=== PATIENT | female | born 1990 | race American Indian/Alaskan Native ===

== ENCOUNTER 2017-03-10 07:23 | Day surgery (SDC) | payer MEDICAID ==
[~2017-03-10 07:23] MED LIST: Lactated Ringers 1,000 ML IV SCH; Sodium Chloride 0.9% 10 ML Syringe FLUSH PRN
[2017-03-10] MEDS ORDERED: Propofol 1,000 MG/100 ML SDV IV ONE (07:24)
[2017-03-10] MEDS ORDERED: Lidocaine 1% 30 ML SDV INJECT ONE ×4 (07:24→08:53)
[2017-03-10] MEDS ORDERED: Ketorolac 30 MG/ML SDV IVPUSH ONE (07:24)
[2017-03-10] MEDS ORDERED: Dexamethasone 4 MG/ML SDV IV ONE (07:24)
[2017-03-10] MEDS ORDERED: Ondansetron 4 MG/2 ML SDV IV ONE (07:24)
[2017-03-10] MEDS ORDERED: fentaNYL 100 MCG/2 ML SDV IV ONE (07:24)
[2017-03-10] MEDS ORDERED: Midazolam 1 MG/ML 2 ML SDV IV ONE (07:24)
[2017-03-10] MEDS ORDERED: Bupivacaine 0.5% 10 ML SDV INJECT ONE ×4 (07:24→08:53)
[2017-03-10] MEDS ORDERED: Lidocaine 1% 30 ML SDV ONE (07:29)
[2017-03-10] MEDS ORDERED: Bupivacaine 0.5% 10 ML SDV ONE (07:29)
[2017-03-10] MEDS ORDERED: Ondansetron 4 MG/2 ML SDV ONE (07:57)
[2017-03-10] MEDS ORDERED: Ketorolac 30 MG/ML SDV ONE (07:57)
[2017-03-10] MEDS ORDERED: Dexamethasone 4 MG/ML SDV ONE (07:57)
[2017-03-10] MEDS ORDERED: fentaNYL 100 MCG/2 ML SDV ONE (07:57)
[2017-03-10] MEDS ORDERED: Midazolam 1 MG/ML 2 ML SDV ONE ×2 (07:57→08:01)
[2017-03-10] MEDS ORDERED: Acetaminophen/oxyCODONE 325-5 MG Tab PO PRN (09:12)
--- NOTE | 2017-03-10 09:17 | PCM.OPNOTE ---
- General Post-Op/Procedure Note Date of Surgery/Procedure: 03/10/17 Operative Procedure(s): left foot hardware removal Pre Op Diagnosis: left foot painful hardware Post-Op Diagnosis: fatoumata Anesthesia Technique: Local, MAC Primary Surgeon: India Sharma Anesthesia Provider: Cuong Diamond EBMelecio in mLs: 5 Complications: none Condition: Good Free Text/Narrative:: pt tolerated procedure well and was transported to recovery with vascular status intact to left foot. TT 11 mins. Well padded dressing with jhoan wrap applied.
[2017-03-10 11:15] VITALS: BP 110/43
--- NOTE | 2017-03-10 15:03 | OR ---
DATE: 03/10/2017 PREOPERATIVE DIAGNOSIS: Left foot painful hardware. POSTOPERATIVE DIAGNOSIS: Left foot painful hardware. PROCEDURE PERFORMED: Left foot hardware removal. ANESTHESIA: Local MAC with preoperative local block of 10 mL of 1:1 mixture of 1% lidocaine plain and 0.5% Marcaine plain. TOURNIQUET TIME: 11 minutes of pneumatic ankle tourniquet. ESTIMATED BLOOD LOSS: Minimal. SPECIMEN: None. COMPLICATIONS: None. INDICATIONS: Brandee is a 26-year-old female who presents with left great toe pain. She had a surgery performed on that great toe back in 2005. She has not really had any issues since the surgery up until a few months ago. She states now she is having pain to the end of that toe, feels like there is something moving around underneath the skin. It is causing numbness and pain to the area. It is painful all the time, even when she is resting. Rated 7/10 at worst. She has tried multiple different shoes and padding with no relief. X-rays of the left foot reveal a large screw intact to the distal hallux with lucency around the screw and prominent screw head. IPJ appears well fused. No signs of fracture. The patient voiced good understanding of proposed procedure and possible complications, and elects to have surgery at this time. DESCRIPTION OF PROCEDURE: The patient was taken to the operating room, lying in supine position. After adequate anesthesia induction as described above, the left foot was prepped and draped in usual sterile fashion. A pneumatic ankle tourniquet was inflated to 225 mmHg. Attention was then directed to the left great toe where a small stab incision was made at the very distal aspect. Sharp and blunt dissection were carried down to the level of the screw head. The soft tissue was gently removed from the screw head and the screw was removed from the left great toe. I visualized the area and there did not appear to be any bony spurring to the area. I then irrigated the area with copious amounts of sterile saline. Closure was completed with 3-0 nylon. The area was then dressed with Xeroform to the incision site, fluffs, Webril, and a well-padded dressing with an Alejandro wrap. The patient tolerated the anesthesia well and procedure and was transported to the recovery room with vital signs stable and vascular status intact as noted by immediate hyperemia to all digits upon deflation of ankle tourniquet. The patient was then discharged home when she met hospital discharge requirements. [facility] /[id number]
== END 2017-03-10 10:10 | disposition home or self-care (01) ==
LOC: DL.SDS 07:23
PROVIDERS: ATTEND Podiatrist
DX: T84.84XA Pain due to internal orthopedic prosthetic devices, implants and grafts, initial encounter (principal); Z47.2 Encounter for removal of internal fixation device; Z88.8 Allergy status to other drugs, medicaments and biological substances; Z98.890 Other specified postprocedural states
CPT/HCPCS: 20680; 81025; J1100; J1885; J2250; J2405; J2704; J3010; J7120; 01480

== ENCOUNTER 2017-04-09 13:19 | Emergency (ER) | payer MEDICAID ==
[2017-04-09 14:25] LABS: CHLORIDE,CL 111 mmol/L (101-111); SODIUM,NA 141 mmol/L (135-145)
[2017-04-09] MEDS ORDERED: Ibuprofen 800 MG Tab PO ONE (14:37)
[2017-04-09 14:47] VITALS: BP 106/64
--- NOTE | 2017-04-09 14:50 | EDM.PDOC ---
Scribed by Janice Tiwari 04/09/17 2534 for Darci Zamarripa MD ED HPI GENERAL MEDICAL PROBLEM - General Chief Complaint: Lower Extremity Injury/Pain Stated Complaint: LEFT LEG Time Seen by Provider: 04/09/17 13:45 Source of Information: Reports: Patient, RN, RN Notes Reviewed History Limitations: Reports: No Limitations - History of Present Illness INITIAL COMMENTS - FREE TEXT/NARRATIVE: Patient complains of left lower leg (calf) pain. Denies injury. Patient states she was completely normal yesterday and woke this morning to severe left calf pain. Onset: Today Location: Reports: Lower Extremity, Left Quality: Reports: Ache Severity: Severe Improves with: Reports: None Worsens with: Reports: None Associated Symptoms: Reports: No Other Symptoms Left Lower Posterior Leg Pain Score (Numeric/FACES): 8 - Related Data Allergies Allergy/AdvReac Type Severity Reaction Status Date / Time tramadol Allergy Cannot Verified 03/10/17 07:42 Remember Home Meds: Home Meds . 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: Musculoskeletal History: Reports: Back Pain, Chronic Psychiatric History: Reports: Depression Other Hematologic History: ''TOOK IRON TABLET AFTER " - Infectious Disease History Infectious Disease History: Reports: Chicken Pox - Past Surgical History Female Surgical History: Reports: Section Musculoskeletal Surgical History: Reports: Other (See Below) Other Musculoskeletal Surgeries/Procedures:: hip pinnings and hammer toe Social & Family History - Family History Family Medical History: Noncontributory - Tobacco Use Smoking Status *Q: Never Smoker Years of Tobacco use: 4 Used Tobacco, but Quit: Yes Month Tobacco Last Used: 08/2014 Second Hand Smoke Exposure: Yes - Caffeine Use Caffeine Use: Reports: Coffee, Soda - Alcohol Use Days Per Week of Alcohol Use: 0 - Recreational Drug Use Recreational Drug Use: No - Living Situation & Occupation Living situation: Reports: with Significant Other Occupation: Unemployed Review of Systems - Review of Systems Review Of Systems: ROS reveals no pertinent complaints other than HPI. ED EXAM, GENERAL - Physical Exam Exam: See Below Exam Limited By: No Limitations General Appearance: Obese Respiratory/Chest: No Respiratory Distress, Lungs Clear, Normal Breath Sounds, No Accessory Muscle Use, Chest Non-Tender Cardiovascular: Normal Peripheral Pulses, Regular Rate, Rhythm, No Edema, No Gallop, No JVD, No Murmur, No Rub Back Exam: Normal Inspection, Full Range of Motion, NT Extremities: Other (left lower leg is tender at calf. No visibleswelling, bruising or erythema.Normal temperatureto touch.Skin is intact.) Neurological: Alert, Oriented, CN II-XII Intact, Normal Cognition, Normal Gait, Normal Reflexes, No Motor/Sensory Deficits Psychiatric: Normal Affect, Normal Mood Skin Exam: Warm, Dry, Intact, Normal Color, No Rash Lymphatic: No Adenopathy Course - Vital Signs Last Recorded V/S: Last Vital Signs Temp 36.7 C 04/09/17 14:47 Pulse 74 04/09/17 14:47 Resp 18 04/09/17 14:47 BP 106/64 04/09/17 14:47 Pulse Ox 100 04/09/17 14:47 - Orders/Labs/Meds Orders: Active Orders 24 hr Category Date Time Status DME for Discharge [COMM] Routine Oth 04/09/17 14:38 Ordered Labs: Laboratory Tests 04/09/17 04/09/17 04/09/17 Range/Units 13:58 13:58 13:58 WBC 6.3 (5.0-10.0) 10^3/uL RBC 3.72 L (4.2-5.4) 10^6/uL Hgb 12.3 D (12.0-16.0) g/dL Hct 37.1 (37.0-47.0) % MCV 99.7 (80-100) fL MCH 33.1 (27.0-34.0) pg MCHC 33.2 (33.0-35.0) g/dL Plt Count 126 L (150-450) 10^3/uL Neut % (Auto) 78.6 H (42.2-75.2) % Lymph % (Auto) 14.0 L (20.5-50.1) % Mccormick % (Auto) 5.6 (2-8) % Eos % (Auto) 1.6 (1.0-3.0) % Baso % (Auto) 0.2 (0.0-1.0) % D-Dimer, Quantitative < 100 (0-400) ng/mL Sodium 141 (135-145) mmol/L Potassium 3.9 (3.6-5.0) mmol/L Chloride 111 (101-111) mmol/L Carbon Dioxide 23.0 (21.0-31.0) mmol/L Anion Gap 10.9 BUN 13 (7-18) mg/dL Creatinine 0.6 (0.6-1.3) mg/dL Est Cr Clr Drug Dosing 138.17 mL/min Estimated GFR (MDRD) > 60 Glucose 98 (74-105) mg/dL Calcium 8.6 (8.4-10.2) mg/dl Magnesium 1.9 (1.8-2.5) mg/dL Meds: Medications Discontinued Medications Generic Name Dose Route Start Last Admin Trade Name Chris PRN Reason Stop Dose Admin Ibuprofen 800 mg 04/09/17 14:37 Motrin PO 04/09/17 14:38 ONETIME ONE Departure - Departure Time of Disposition: 14:37 Disposition: Home, Self-Care 01 Condition: Good Clinical Impression: Leg pain, posterior Qualifiers: Laterality: left Qualified Code(s): M79.605 - Pain in left leg - Discharge Information Instructions: Pain Without a Known Cause Forms: ED Department Discharge Additional Instructions: Ibuprofen 800mg. Use crutches as needed. Moist heat pad to the area of the pain. Follow up in clinic this week if not improved. - My Orders Last 24 Hours: My Active Orders 04/09/17 14:38 DME for Discharge [COMM] Routine - Assessment/Plan Last 24 Hours: My Active Orders 04/09/17 14:38 DME for Discharge [COMM] Routine I have read and agree with the documentation that has been completed regarding this visit. By signing this record, I attest that the documentation was completed in my physical presence and is an accurate record of the encounter.
== END 2017-04-09 15:09 | disposition home or self-care (01) ==
LOC: DL.ED 13:19
DX: M79.605 Pain in left leg (principal); Z88.5 Allergy status to narcotic agent
CPT/HCPCS: 36415; 80048; 83735; 85025; 85379; 99284

== ENCOUNTER 2021-02-15 20:02 | Emergency (ER) | payer MEDICAID ==
[2021-02-15] MEDS ORDERED: Butorphanol 2 MG/ML SDV IM ONE (20:12)
[2021-02-15] MEDS ORDERED: Amoxicillin/Clavulanate K 875-125 MG Tab PO ONE (20:12)
--- NOTE | 2021-02-15 20:15 | EDM.PDOC ---
ED HPI GENERAL MEDICAL PROBLEM - General Chief Complaint: ENT Problem Stated Complaint: TOOTH ABCESS Time Seen by Provider: 02/15/21 20:09 Source of Information: Reports: Patient - History of Present Illness INITIAL COMMENTS - FREE TEXT/NARRATIVE: Pt is here for dental pain. It started a few days ago and has been getting worse. She notes it is on the left side, top and bottom. She has not seen anyone yet for this. She has been taking tylenol and ibuprofen for the pain without relief. She rates her pain a 10/10. Nothing makes it better. Eating and talking makes it worse. No fevers or chills. Onset: Gradual Duration: Day(s): Quality: Reports: Ache, Throbbing Treatments DIRECTOR INDEPENDENT: Reports: Acetaminophen, NSAIDS - Related Data Allergies Allergy/AdvReac Type Severity Reaction Status Date / Time tramadol Allergy Cannot Verified 02/15/21 20:12 Remember Home Meds: Home Meds . 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 No BC Musculoskeletal Surgical History: Reports: Other (See Below) Other Musculoskeletal Surgeries/Procedures:: hip pinnings and hammer toe Social & Family History - Family History Family Medical History: No Pertinent Family History - Caffeine Use Caffeine Use: Reports: Coffee, Soda - Living Situation & Occupation Living situation: Reports: with Significant Other Occupation: Unemployed ED ROS ENT - Review of Systems Review Of Systems: Comprehensive ROS is negative, except as noted in HPI. ED EXAM, ENT - Physical Exam Exam: See Below Exam Limited By: No Limitations General Appearance: Alert, WD/WN, Mild Distress (due to pain) Eye Exam: Bilateral Eye: Normal Inspection Ears: Normal External Exam Nose: Normal Inspection, No Blood Mouth/Throat: Normal Oropharynx, Dental Pain (left upper with broken tooth and surrounding erythema), Dental Tenderness, Gum Swelling. No: Dental Abcess, Throat Swelling, Tongue Swelling, Uvular Deviation Head: Atraumatic, Normocephalic Neck: Normal Inspection, Supple, Non-Tender Respiratory/Chest: No Respiratory Distress, Lungs Clear, Normal Breath Sounds, No Accessory Muscle Use Cardiovascular: Normal Peripheral Pulses, Regular Rate, Rhythm, No Murmur GI/Abdominal: Soft, No Distention (Female) Exam: Deferred Rectal (Female) Exam: Deferred Back: Normal Inspection, Full Range of Motion Extremities: Normal Inspection, Normal Range of Motion, No Pedal Edema Neurological: Alert, Oriented, Normal Cognition, No Motor/Sensory Deficits Psychiatric: Normal Mood, Tearful Skin: Warm, Dry, Intact, Normal Color Lymphatic: No Adenopathy Departure - Departure Time of Disposition: 20:17 Disposition: Home, Self-Care 01 Condition: Good Clinical Impression: Dental caries, Dental infection - Discharge Information *PRESCRIPTION DRUG MONITORING PROGRAM REVIEWED*: No *COPY OF PRESCRIPTION DRUG MONITORING REPORT IN PATIENT CARLENE: No Instructions: Dental Caries, Adult, [id number], Dental Abscess, [id number] Forms: ED Department Discharge Additional Instructions: Augmentin twice daily for 10 days, prescription needs to be filled at the pharmacy tomorrow Continue Tylenol and ibuprofen as needed for pain relief Follow up with your dentist in 3-5 days
[2021-02-15 20:16] VITALS: BP 122/81; PULSE 97
== END 2021-02-15 22:02 | disposition home or self-care (01) ==
LOC: DL.ED 20:02
DX: K04.7 Periapical abscess without sinus (principal); K02.9 Dental caries, unspecified; Z88.5 Allergy status to narcotic agent
CPT/HCPCS: 96372; 99282; A9270; J0595

== ENCOUNTER 2023-01-02 12:54 | Emergency (ER) | payer MEDICAID ==
[2023-01-02 13:15] VITALS: BP 143/65; PULSE 84
== END 2023-01-02 13:10 | disposition left against medical advice (07) ==
LOC: DL.ED 12:54
DX: T14.8XXA Other injury of unspecified body region, initial encounter (principal); Z88.5 Allergy status to narcotic agent; X58.XXXA Exposure to other specified factors, initial encounter
CPT/HCPCS: 99283

== ENCOUNTER 2023-01-06 11:14 | Emergency (ER) | payer MEDICAID ==
[2023-01-06 11:52] VITALS: BP 117/76; PULSE 64
[2023-01-06] MEDS ORDERED: Sodium Chloride 0.9% 10 ML Syringe FLUSH PRN (13:57)
[2023-01-06] MEDS ORDERED: Iopamidol 755 Mg/ML 100 ML Bottle IVPUSH ONE (14:01)
[2023-01-06 14:07] LABS: BASOPHILS PERCENT AUTO 0.3 % (0.0-1.0); EOSINOPHILS PERCENT AUTO 2.5 % (1.0-3.0); HEMATOCRIT 40.3 % (37.0-47.0); HEMOGLOBIN 13.2 g/dL (12.0-16.0); LYMPHOCYTES PERCENT AUTO 23.6 % (20.5-50.1); MEAN CORPUSCULAR HEMOGLOBIN 30.7 pg (27.0-34.0); MEAN CORPUSCULAR HGB CONC 32.8 g/dL (33.0-35.0); MEAN CORPUSCULAR VOLUME 93.7 fL (80-100); MONOCYTES PERCENT AUTO 9.1 % (2-8); NEUTROPHILS PERCENT AUTO 64.5 % (42.2-75.2); PLATELET COUNT,PLT 227 10^3/uL (150-450); WHITE BLOOD CELL COUNT,WBC 7.2 10^3/uL (5.0-10.0)
[2023-01-06 14:21] LABS: ANION GAP 13.9 mEq/L (7-13); BLOOD UREA NITROGEN,BUN 11 mg/dL (7-18); CALCIUM 8.6 mg/dL (8.5-10.1); CARBON DIOXIDE,CO2 26 mmol/L (21-32); CHLORIDE,CL 104 mmol/L (98-107); CREATININE 0.69 mg/dL (0.55-1.02); EST CRCL DRUG DOSING (CG) 113.83 mL/min; ESTIMATED GFR 118 mL/min (>=60); GLUCOSE RANDOM 97 mg/dL (70-99); POTASSIUM,K 3.9 mmol/L (3.5-5.1); SODIUM,NA 140 mmol/L (136-145)
[2023-01-06 14:28] LABS: HCG QUALITATIVE,SERUM NEGATIVE (NEGATIVE)
== END 2023-01-06 16:13 | disposition home or self-care (01) ==
LOC: DL.ED 11:14
DX: R55 Syncope and collapse (principal); F17.210 Nicotine dependence, cigarettes, uncomplicated; Z88.5 Allergy status to narcotic agent
CPT/HCPCS: 36415; 71275; 80048; 84703; 85025; 99284; Q9967; J3490